=== PATIENT | male | born 1945 | race Caucasian/White ===

== ENCOUNTER 2020-05-18 09:47 | Outpatient (NON) | payer MEDICARE, OTHER, SELFPAY ==
[2020-05-19 03:01] LABS: SARS-CoV-2 RNA PCR Negative
== END 2020-05-18 09:48 ==
PROVIDERS: PCP Internal Medicine; Visit Provider Internal Medicine
DX: Z20.828 Contact with and (suspected) exposure to other viral communicable diseases (principal)
CPT/HCPCS: 87635; C9803; U0003

== ENCOUNTER 2024-02-29 08:02 | Outpatient (CLI) | payer MEDICARE, OTHER, SELFPAY ==
--- NOTE | ~2024-02-29 | CT_ITS ---
EXAMINATION: CT abdomen pelvis wo con DATE: 02/29/2024 08:28 INDICATION: STONE, BLADDER, DIVERTICULUM TECHNIQUE: Computed tomography (CT) of the abdomen and pelvis was performed without intravenous contr ast. Automated exposure control and iterative reconstruction technique were employed. The dose-length product was 334.41 mGy-cm. COMPARISON: None. FINDINGS: Lower thorax: Calcified granulomas. Coronary artery and aortic valve calcifications Liver: Normal. Biliary/Gallbladder: Cholelithiasis. No inflammatory changes No bile duct dilation. Pancreas: No mass or duct dilation. Spleen: Normal. Adrenals:No mass. Kidneys: Multiple simple bilateral cysts measuring up to 6 cm on the left. GI tract: No small or large bowel dilation. Normal appendix. Diverticulosis without diverticulitis. Mesentery/Peritoneum: No ascites, mass, or free air. Retroperitoneum: No mass. Atherosclerotic abdominal aortic and/or arterial calcifications. Pelvis: Partially distended urinary bladder with wall thickening. 4 mm calcification in the left post erior bladder lumen. 6 mm calcification in the distal right ureter as it crosses over the iliac vesse ls, with only minimal upstream ureterectasis. Small right posterolateral bladder diverticulum. Prosta tic calcifications.. Soft Tissues: Soft tissues and body wall unremarkable. Bones: No acute osseous finding. IMPRESSION: 6 mm distal left ureteral stone causing minimal upstream ureterectasis. Bladder wall thickening, may be secondary to cystitis or chronic outlet obstruction. 4 mm bladder joe cification may represent a bladder stone or recently passed nephrolith. Small right posterior bladder diverticulum. Bilateral punctate nonobstructing nephroliths Reviewed, dictated and finalized at location K. IMPRESSION: 6 mm distal left ureteral stone causing minimal upstream ureterectasis. Bladder wall thickening, may be secondary to cystitis or chronic outlet obstruc tion. 4 mm bladder calcification may represent a bladder stone or recently pass ed nephrolith. Small right posterior bladder diverticulum. Bilateral punctate nonobstructing nephroliths
== END 2024-02-29 08:03 | disposition home or self-care (01) ==
PROVIDERS: Visit Provider Nurse Practitioner Family
DX: N21.0 Calculus in bladder (principal); N20.2 Calculus of kidney with calculus of ureter
CPT/HCPCS: 74176